=== PATIENT | female | born 1940 | race Two or more races ===

== ENCOUNTER → 2018-08-12 | Day surgery (SDC) | payer OTHER | END | disposition home or self-care (01) | LOC: ADM 08-05 15:00 → AMB-ENDOS 06:33 | DX: D12.8 Benign neoplasm of rectum (principal) ==

== ENCOUNTER 2019-09-22 06:45 | Day surgery (SDC) | payer OTHER | END 2019-09-22 11:30 | disposition home or self-care (01) | LOC: AMB-ENDOS 06:45 | DX: K57.30 Diverticulosis of large intestine without perforation or abscess without bleeding (principal); K64.2 Third degree hemorrhoids ==

== ENCOUNTER 2021-09-26 06:34 | Day surgery (SDC) | payer OTHER | END 2021-09-26 10:55 | disposition home or self-care (01) | LOC: AMB-ENDOS 06:34 | PROVIDERS: ATTEND Colon & Rectal Surgery | DX: K62.89 Other specified diseases of anus and rectum (principal); K64.1 Second degree hemorrhoids; Z20.822 Contact with and (suspected) exposure to COVID-19 ==

== ENCOUNTER 2023-08-17 08:10 | Outpatient (CLI) | payer OTHER | END 2023-08-17 08:18 | disposition home or self-care (01) | LOC: TOM 08:10 | DX: R22.1 Localized swelling, mass and lump, neck (principal); Z91.011 Allergy to milk products | CPT/HCPCS: 70491; Q9965 ==